=== PATIENT | female | born 1960 ===

== ENCOUNTER 2022-12-17 06:55 | Day surgery (SDC) | payer OTHER ==
[~2022-12-17] VITALS: Ht 76.2 cm; Wt 90.7 kg
[~2022-12-17 06:55] MED LIST: ATORVASTATIN CA10 MG; GLIMEPIRIDE4 MG; LOTREL 10-40 M1 EACH PO; METFORMIN HCL1000 M2 PO; PERCOCET 5/3251 TAB PO; POLY119PG PO; SURFAK240 M1 PO
== END 2022-12-17 15:20 | disposition home or self-care (01) ==
LOC: CIR.AMB 06:55
PROVIDERS: ATTEND Obstetrics & Gynecology
DX: N95.0 Postmenopausal bleeding (principal); Z20.822 Contact with and (suspected) exposure to COVID-19; Z91.041 Radiographic dye allergy status; Z88.6 Allergy status to analgesic agent; I10 Essential (primary) hypertension; E11.9 Type 2 diabetes mellitus without complications